=== PATIENT | female | born 1940 | race African-American/Black ===

== ENCOUNTER 2022-11-14 03:53 | Day surgery (SDC) | payer OTHER ==
[2022-11-12 14:22] VITALS: BMI 21.4
[2022-11-14] MEDS ORDERED: BUPIVACAINE HCL/PF 0.5% (5MG/ML) 10 ML VIAL ONE (07:38)
[2022-11-14] MEDS ORDERED: LIDOCAINE HCL/PF 1% SDV 5ML VIAL ONE (07:39)
[2022-11-14] MEDS ORDERED: ACETAMINOPHEN 500 MG TABLET (FP) PO PRN (11:30)
[2022-11-14] MEDS ORDERED: IOHEXOL 180 MG/1 ML ML IJ ONE (12:29)
[2022-11-14] MEDS ORDERED: BUPIVACAINE HCL/PF 0.5% (5 MG/ML) 30 ML VIAL IJ ONE (12:29)
[2022-11-14] MEDS ORDERED: LIDOCAINE HCL 1% PRESERVATIVE FREE - 30ML VIAL IJ ONE (12:29)
[2022-11-14 14:45] VITALS: BP 145/62; PULSE 76; RESP 20; TEMP 97.2
== END 2022-11-14 13:25 | disposition home or self-care (01) ==
LOC: JASU-SURG 03:53
PROVIDERS: ATTEND Pain Medicine Pain Medicine
PROC: 3E0T33Z Introduction of Anti-inflammatory into Peripheral Nerves and Plexi, Percutaneous Approach (ICD-10-PCS; 2022-11-14)
PROC: 3E0T3BZ Introduction of Anesthetic Agent into Peripheral Nerves and Plexi, Percutaneous Approach (ICD-10-PCS; principal; 2022-11-14 11:45)
DX: M47.812 Spondylosis without myelopathy or radiculopathy, cervical region (principal)
CPT/HCPCS: 76000-TC-FY

== ENCOUNTER 2022-12-19 05:03 | Day surgery (SDC) | payer OTHER ==
[2022-12-12 12:34] VITALS: BMI 21.4
[2022-12-19 07:05] VITALS: RESP 20
[2022-12-19] MEDS ORDERED: BUPIVACAINE HCL/PF 0.5% (5MG/ML) 10 ML VIAL ONE (07:06)
[2022-12-19] MEDS ORDERED: LIDOCAINE HCL/PF 1% SDV 5ML VIAL ONE (07:06)
[2022-12-19] MEDS ORDERED: LIDOCAINE 1% P/F 10 MG/ML VIAL INF ONE (07:34)
[2022-12-19] MEDS ORDERED: BUPIVACAINE HCL/PF 0.5% (5 MG/ML) 30 ML VIAL IJ ONE ×3 (07:34→08:53)
[2022-12-19] MEDS ORDERED: ACETAMINOPHEN 500 MG TABLET (FP) PO PRN (07:53)
[2022-12-19] MEDS ORDERED: ACETAMINOPHEN 500 MG TABLET (FP) ONE (09:33)
[2022-12-19 10:40] VITALS: BP 150/72; PULSE 83; TEMP 97
== END 2022-12-19 10:30 | disposition home or self-care (01) ==
LOC: JASU-SURG 05:03
PROVIDERS: ATTEND Pain Medicine Pain Medicine
PROC: 3E0T33Z Introduction of Anti-inflammatory into Peripheral Nerves and Plexi, Percutaneous Approach (ICD-10-PCS; 2022-12-19)
PROC: 3E0T3BZ Introduction of Anesthetic Agent into Peripheral Nerves and Plexi, Percutaneous Approach (ICD-10-PCS; principal; 2022-12-19 08:45)
DX: M47.812 Spondylosis without myelopathy or radiculopathy, cervical region (principal)
CPT/HCPCS: 76000-TC-FY

== ENCOUNTER 2023-01-30 05:14 | Day surgery (SDC) | payer OTHER ==
[2023-01-28 14:21] VITALS: BMI 21.2
[~2023-01-30 05:14] MED LIST: BUPIVACAINE HCL/PF 0.5% (5MG/ML) 10 ML VIAL IJ ONE; DEXAMETHASONE SOD PHOSPHATE 10 MG/1 ML VIAL IM ONE; LIDOCAINE HCL 1% PRESERVATIVE FREE - 30ML VIAL IJ ONE; LIDOCAINE HCL/PF 2% SDV 5ML VIAL INF ONE
[2023-01-30 10:53] VITALS: RESP 20
[2023-01-30] MEDS ORDERED: LIDOCAINE HCL/PF 1% SDV 5ML VIAL ONE (11:21)
[2023-01-30] MEDS ORDERED: LIDOCAINE HCL/PF 2% SDV 5ML VIAL INF ONE (11:31)
[2023-01-30] MEDS ORDERED: BUPIVACAINE HCL/PF 0.5% (5MG/ML) 10 ML VIAL IJ ONE (11:31)
[2023-01-30] MEDS ORDERED: LIDOCAINE HCL 1% PRESERVATIVE FREE - 30ML VIAL IJ ONE (11:31)
[2023-01-30] MEDS ORDERED: DEXAMETHASONE SOD PHOSPHATE 10 MG/1 ML VIAL IM ONE (11:31)
[2023-01-30] MEDS ORDERED: ACETAMINOPHEN 500 MG TABLET (FP) PO PRN (12:43)
[2023-01-30 15:06] VITALS: BP 157/67; PULSE 73; TEMP 98.5
== END 2023-01-30 12:48 | disposition home or self-care (01) ==
LOC: JASU-SURG 05:14
PROVIDERS: ATTEND Pain Medicine Pain Medicine
PROC: 01513ZZ Destruction of Cervical Nerve, Percutaneous Approach (ICD-10-PCS; principal; 2023-01-30 12:00)
DX: M47.812 Spondylosis without myelopathy or radiculopathy, cervical region (principal)
CPT/HCPCS: 76000-TC-FY; J1100

== ENCOUNTER 2023-03-20 04:50 | Day surgery (SDC) | payer OTHER ==
[2023-03-19 11:10] VITALS: BMI 21.2
[~2023-03-20 04:50] MED LIST changes: -DEXAMETHASONE SOD PHOSPHATE 10 MG/1 ML VIAL IM ONE; +DEXAMETHASONE SOD PHOSPHATE 10 MG/1 ML VIAL IVPUSH ONE; +LIDOCAINE 1% P/F 10 MG/ML VIAL INF ONE; -LIDOCAINE HCL 1% PRESERVATIVE FREE - 30ML VIAL IJ ONE
[2023-03-20] MEDS ORDERED: BUPIVACAINE HCL/PF 0.5% (5MG/ML) 10 ML VIAL ONE (07:15)
[2023-03-20] MEDS ORDERED: LIDOCAINE HCL/PF 1% SDV 5ML VIAL ONE (07:15)
[2023-03-20] MEDS ORDERED: DEXAMETHASONE SOD PHOSPHATE 10 MG/1 ML VIAL ONE (07:15)
[2023-03-20] MEDS ORDERED: LIDOCAINE HCL/PF 2% SDV 5ML VIAL ONE ×2 (07:15→09:03)
[2023-03-20] MEDS ORDERED: LIDOCAINE 1% P/F 10 MG/ML VIAL INF ONE (09:30)
[2023-03-20] MEDS ORDERED: LIDOCAINE HCL/PF 2% SDV 5ML VIAL INF ONE (09:30)
[2023-03-20] MEDS ORDERED: BUPIVACAINE HCL/PF 0.5% (5MG/ML) 10 ML VIAL IJ ONE (09:30)
[2023-03-20] MEDS ORDERED: DEXAMETHASONE SOD PHOSPHATE 10 MG/1 ML VIAL IVPUSH ONE (09:30)
[2023-03-20 09:45] VITALS: TEMP 97.8
[2023-03-20] MEDS ORDERED: ACETAMINOPHEN 500 MG TABLET (FP) ONE (10:24)
[2023-03-20 11:32] VITALS: BP 148/66; PULSE 84; RESP 18
[2023-03-20] MEDS ORDERED: ACETAMINOPHEN 500 MG TABLET (FP) PO PRN (12:44)
== END 2023-03-20 11:33 | disposition home or self-care (01) ==
LOC: JASU-SURG 04:50
PROVIDERS: ATTEND Pain Medicine Pain Medicine
PROC: 01553ZZ Destruction of Median Nerve, Percutaneous Approach (ICD-10-PCS; principal; 2023-03-20 09:45)
DX: M47.812 Spondylosis without myelopathy or radiculopathy, cervical region (principal)
CPT/HCPCS: 76000-TC-FY; J1100